=== PATIENT | female | born 1985 | race Caucasian/White ===

== ENCOUNTER 2016-05-28 10:14 | Emergency (ER) | payer OTHER ==
[~2016-05-28] VITALS: Ht 162.6 cm; Wt 61.5 kg
[~2016-05-28 10:14] MED LIST: ACET325T33 PO; ALBU8.5H3 INH; ALBU8.5H5 INH; AZIT250T94 PO; CALC-84 PO; CETI10CA PO; FAMO20TA18 PO; FERR27TA PO; NAPR-260 PO; ONDA4TAB35 PO; PREN-46 PO; UDROBDM PO
[2016-05-28 10:39] VITALS: Ht 162.6 cm; Wt 61.5 kg
[2016-05-28] MEDS ORDERED: SOD CHLORIDE 0.9% 1,000 ML IV STA (11:10)
[2016-05-28] MEDS ORDERED: ONDANSETRON 4 MG INJ IV STA ×2 (11:10→14:05)
[2016-05-28] MEDS ORDERED: morphine 4 MG/ML VIAL IV STA ×2 (11:10→14:05)
--- NOTE | 2016-05-28 11:16 | ERD ---
ER Documentation Chief Complaint Date/Time DATE: 05/28/16 TIME: 11:13 Chief Complaint AP W/ N/V X4 DAYS HPI 31-year-old female with a history of ovarian cysts, presents the emergency department complaining of a 3 day history of intermittent left-sided pelvic pain which worsened last night. Patient states she is currently an 8 out of 10 cramping pain worse on the left but also notes some pain on the right side as well. Patient states she is experienced this pain previously 4 years ago and was ultimately diagnosed with a . Since that time patient states she has a tubal ligation. Patient states her last normal period was 15 May 2016. Patient notes mild spotting as well as grayish white malodorous discharge currently but denies vaginal itching, dysuria, nausea, vomiting or fever. Patient denies any new sexual partners. ROS All systems reviewed and are negative except as per history of present illness. Medications Home Meds Active Scripts Guaifenesin-Dextromethorphan* (Robitussin* DM) 100MG/10MG/5ML Syrup, 10 ML PO Q4H Y for COUGH for 5 Days, ML Prov:PARKER RIOS PA-C 01/10/16 Cetirizine Hcl* (Zyrtec*) 10 Mg Capsule, 10 MG PO DAILY, #14 TAB.CHEW Prov:PARKER RIOS PA-C 01/10/16 Albuterol Sulfate* (Proair HFA*) 8.5 Gm Hfa.aer.ad, 2 PUFF INH Q4, #1 INHALER Prov:PARKER RIOS PA-C 01/10/16 Azithromycin* (Zithromax*) 250 Mg Tablet, 250 MG PO .RamonPACK DIRECTED, #6 TAB TAKE 500 MG (2 TABS) THE FIRST DAY THEN 250 MG (1 TAB) DAYS 2-5 Prov:PARKER RIOS PA-C 01/10/16 Acetaminophen* (Tylenol*) 325 Mg Tablet, 2 TAB PO Q6 Y for PAIN AND OR ELEVATED TEMP, #20 TAB Prov:CHANA CHEATHAM DO 04/22/15 Naproxen* (Naprosyn*) 500 Mg Tablet, 500 MG PO BID Y for PAIN AND/OR INFLAMMATION, #14 TAB Prov:CHANA CHEATHAM DO 04/22/15 Albuterol Sulfate* (Albuterol Sulfate* HFA) 8.5 Gm Hfa.aer.ad, 1-2 PUFF INH Q4 Y for SHORTNESS OF BREATH, #1 EA Prov:DANIELA ORTIZ NP 09/10/14 Naproxen* (Naprosyn*) 500 Mg Tablet, 500 MG PO BID Y for PAIN AND/OR INFLAMMATION, #30 TAB Prov:DANIELA ORTIZ NP 09/10/14 Famotidine* (Famotidine*) 20 Mg Tablet, 20 MG PO DAILY for 14 Days, TAB Prov:ZOË ALLENC 08/26/14 Ondansetron Hcl* (Zofran* ODT) 4 mg -ODT Tab.disper, 4 MG PO Q4H Y for NAUSEA AND OR VOMITING, #20 TAB Prov:ZOË ALLENC 08/26/14 Reported Medications Calcium Carbonate-Vitamin D3 (Calcium 500 + D Tablet) 1 Each Tablet, 1 EACH PO DAILY 02/15/13 Vit #108/Iron/Fa ( ONE TABLET) 1 Each Tablet, 1 EACH PO DAILY 02/15/13 Ferrous Sulfate (Iron) 1 Tab Tablet, 1 TAB PO DAILY 02/15/13 Allergies Allergies: Coded Allergies: Penicillins (Verified Allergy, Severe, Rash, SOB, 04/23/13) PMhx/Soc History of Surgery: Yes () Anesthesia Reaction: No Hx Neurological Disorder: No Hx Respiratory Disorders: No Hx Cardiac Disorders: No Hx Psychiatric Problems: No Hx Miscellaneous Medical Probl: No Hx Alcohol Use: No Hx Substance Use: No Hx Tobacco Use: No Smoking Status: Never smoker Physical Exam Vitals Vital Signs Date Time Temp Pulse Resp B/P Pulse Ox O2 Delivery O2 Flow Rate FiO2 05/28/16 10:39 99.3 109 16 115/66 97 Physical Exam Const: Well-developed, well-nourished, no acute distress Head: Atraumatic Eyes: Normal Conjunctiva ENT: Normal External Ears, Nose and Mouth. Neck: Full range of motion..~ No meningismus. Resp: Clear to auscultation bilaterally Cardio: Regular rate and rhythm, no murmurs Abd: Soft, tenderness to palpation along left lower abdomen. Negative McBurney point tenderness. non distended. Normal bowel sounds Skin: No petechiae or rashes Back: No midline or flank tenderness Ext: No cyanosis, or edema Neur: Awake and alert Psych: Normal Mood and Affect Result Diagram: 05/28/16 1120 05/28/16 1120 Results 24 hrs Laboratory Tests Test 05/28/16 11:20 05/28/16 11:32 White Blood Count 15.810^3/ul Red Blood Count 4.2910^6/ul Hemoglobin 13.0g/dl Hematocrit 38.6% Mean Corpuscular Volume 90.0fl Mean Corpuscular Hemoglobin 30.3pg Mean Corpuscular Hemoglobin Concent 33.7g/dl Red Cell Distribution Width 12.7% Platelet Count 91669^3/UL Mean Platelet Volume 10.0fl Neutrophils % 75.6% Lymphocytes % 17.1% Monocytes % 5.9% Eosinophils % 0.7% Basophils % 0.3% Nucleated Red Blood Cells % 0.0/100WBC Neutrophils # 11.910^3/ul Lymphocytes # 2.710^3/ul Monocytes # 0.910^3/ul Eosinophils # 0.110^3/ul Basophils # 0.110^3/ul Nucleated Red Blood Cells # 0.010^3/ul Sodium Level 137mmol/L Potassium Level 4.2mmol/L Chloride Level 104mmol/L Carbon Dioxide Level 24mmol/L Anion Gap 13 Blood Urea Nitrogen 7mg/dl Creatinine 0.54mg/dl Glucose Level 101mg/dl Calcium Level 9.2mg/dl Total Bilirubin 0.2mg/dl Direct Bilirubin 0.00mg/dl Indirect Bilirubin 0.2mg/dl Aspartate Amino Transf (AST/SGOT) 21IU/L Alanine Aminotransferase (ALT/SGPT) 37IU/L Alkaline Phosphatase 71IU/L Total Protein 8.0g/dl Albumin 4.5g/dl Globulin 3.50g/dl Albumin/Globulin Ratio 1.28 Lipase 57U/L Urine Color LT. YELLOW Urine Clarity CLEAR Urine pH 6.5 Urine Specific [place] 1.010 Urine Ketones NEGATIVE Urine Nitrite NEGATIVE Urine Bilirubin NEGATIVE Urine Urobilinogen 0.2 E.U./dL Urine Leukocyte Esterase 1+ Urine Microscopic RBC 2-5/HPF Urine Microscopic WBC 5-10/HPF Urine Epithelial Cells MODERATE Urine Bacteria OCCASIONAL Urine Hemoglobin 2+ Urine Glucose NEGATIVE% Urine Total Protein NEGATIVE Current Medications Medications (Trade) Dose Ordered Sig/Maria Victoria Route PRN Reason Start Time Stop Time Status Last Admin Dose Admin Sodium Chloride (NS) 1,000 ml @ 1,000 mls/hr Q1H STAT IV 05/28/16 11:10 05/28/16 12:09 DC 05/28/16 11:37 Morphine Sulfate (morphine) 4 mg ONCE STAT IV 05/28/16 11:10 05/28/16 11:12 DC 05/28/16 11:38 Ondansetron HCl (Zofran Inj) 4 mg ONCE STAT IV 05/28/16 11:10 05/28/16 11:12 DC 05/28/16 11:37 Procedures/MDM PROCEDURE: US Pelvis CLINICAL INDICATION: Pelvic pain. TECHNIQUE: Transabdominal and transvaginal sonographic evaluation of the pelvis was performed. COMPARISON: None. FINDINGS: Myometrium is homogeneous in echotexture without fibroids. Endometrium is normal in thickness without a focal abnormality. Normal flow to both ovaries. No adnexal mass. No free pelvic fluid. MEASUREMENTS: Uterus: 10.6 x 5.3 x 6.8 cm, anteverted. Endometrium: 0.9 cm. Right ovary size: 4.1 x 2.6 x 2.7 cm Left ovary size: 3.6 x 1.9 x 2.1 cm IMPRESSION: 1. Unremarkable ultrasound of the pelvis. RPTAT: EE .Luiz Brown MD, Date Time Electronically viewed and signed by .Luiz Brown MD, MD on 05/28/2016 13:42 .C/ CC: UMER DWYER PA-C Upon arrival patient was afebrile but mildly tachycardic at 109 bpm. Patient received a bolus of fluids as well as pain medication while in the emergency department and her vital signs have since stabilized. Patient reports improvement of symptoms. Pelvic ultrasound unremarkable. At the time I have low suspicion for ovarian torsion, tubo-ovarian abscess, ectopic . Given the patient's history and cycle, patient's discomfort likely a result of bacterial vaginosis versus mittelschmerz. Based on patient's history of present illness and physical examination the decision was made to discharge. The patient was re-evaluated after ED treatment and stabilizing measures, and symptoms have improved. There is no evidence of life threatening injuries or illnesses at this time. On re-examination, patient resting in no distress, stable vital signs, reports feeling better and safe for discharge with outpatient follow up with PMD in 1-2 days. Patient given return precautions. Departure Diagnosis: Primary Impression: Pelvic pain Additional Impression: Vaginal discharge UMER DWYER PA-C May 28, 2016 11:16
[2016-05-28 11:46] LABS: ADD SCAN DIFF NO
[2016-05-28 11:47] LABS: BASOPHIL # 0.1 10^3/ul (0.0-0.1); BASOPHILS % 0.3 % (0.0-2.0); EOSINOPHILS # 0.1 10^3/ul (0.0-0.5); EOSINOPHILS % 0.7 % (0.0-7.0); HEMATOCRIT 38.6 % (37.0-47.0); LYMPHOCYTES # 2.7 10^3/ul (0.8-2.9); LYMPHOCYTES % 17.1 % (15.0-51.0); MEAN CORPUSCULAR HEMOGLOBIN 30.3 pg (29.0-33.0); MEAN CORPUSCULAR HGB CONC 33.7 g/dl (32.0-37.0); MONOCYTE # 0.9 10^3/ul (0.3-0.9); MONOCYTES % 5.9 % (0.0-11.0); NEUTROPHIL # 11.9 10^3/ul (1.6-7.5); NEUTROPHILS % 75.6 % (39.0-77.0); PLATELET COUNT 198 10^3/UL (140-415); RED BLOOD COUNT 4.29 10^6/ul (4.20-5.40); RED CELL DISTRIBUTION WIDTH 12.7 % (11.5-14.5); WHITE BLOOD COUNT 15.8 10^3/ul (4.8-10.8)
[2016-05-28 11:48] LABS: ADD UMIC YES; URINE BILIRUBIN (Dip) NEGATIVE (NEGATIVE); URINE BLOOD (Dip) 2+ (NEGATIVE); URINE COLOR LT. YELLOW (YELLOW); URINE GLUCOSE (Dip) NEGATIVE (NEGATIVE); URINE KETONES (Dip) NEGATIVE (NEGATIVE); URINE LEUKOCYTE ESTERASE (Dip) 1+ (NEGATIVE); URINE NITRITE (Dip) NEGATIVE (NEGATIVE); URINE TOTAL PROTEIN (Dip) NEGATIVE (NEGATIVE); URINE UROBILINOGEN (Dip) 0.2 E.U./dL (0.1-1.0)
[2016-05-28 11:57] LABS: BACTERIA,URINE OCCASIONAL
[2016-05-28 12:02] LABS: ALBUMIN 4.5 g/dl (3.3-4.9); ALBUMIN/GLOBULIN RATIO 1.28; BILIRUBIN,INDIRECT 0.2 mg/dl (0-1.1); BILIRUBIN,TOTAL 0.2 mg/dl (0.2-1.3); CALCIUM 9.2 mg/dl (8.4-10.2); CREATININE 0.54 mg/dl (0.44-1.00); POTASSIUM 4.2 mmol/L (3.5-5.1)
--- NOTE | 2016-05-28 13:37 | RADRPT ---
PROCEDURE: US Pelvis CLINICAL INDICATION: Pelvic pain. TECHNIQUE: Transabdominal and transvaginal sonographic evaluation of the pelvis was performed. COMPARISON: None. FINDINGS: Myometrium is homogeneous in echotexture without fibroids. Endometrium is normal in thickness without a focal abnormality. Normal flow to both ovaries. No adnexal mass. No free pelvic fluid. MEASUREMENTS: Uterus: 10.6 x 5.3 x 6.8 cm, anteverted. Endometrium: 0.9 cm. Right ovary size: 4.1 x 2.6 x 2.7 cm Left ovary size: 3.6 x 1.9 x 2.1 cm IMPRESSION: 1. Unremarkable ultrasound of the pelvis. RPTAT: EE .Luiz Brown MD, Date Time Electronically viewed and signed by .Luiz Brown MD, on 05/28/2016 13:42 .C/
[2016-05-28] MEDS ORDERED: HYDR-906 PO (14:10)
[2016-05-28] MEDS ORDERED: METR500T PO (14:10)
[2016-05-28] MEDS ORDERED: NAPR-260 PO (14:10)
== END 2016-05-28 14:31 | disposition home or self-care (01) ==
LOC: FTE 10:14
DX: R10.2 Pelvic and perineal pain (principal); N89.8 Other specified noninflammatory disorders of vagina; R11.2 Nausea with vomiting, unspecified
CPT/HCPCS: 36415; 76830; 76856; 80053; 81001; 83690; 85025; 96374; 96375; 96376; J2270; J2405; J7030; Z7502; 81003